=== PATIENT | female | born 1980 | race Caucasian/White ===

== ENCOUNTER → 2019-06-09 13:42 | Outpatient (CLI) | payer OTHER, SELFPAY ==
--- NOTE | 2019-06-09 | DI.RAD.S_ITS ---
PROCEDURE: XR KNEE RT 1TO2V INDICATIONS: PAIN IN RIGHT KNEE TECHNIQUE: 2 views of the knee were acquired. COMPARISON: None. FINDINGS: Bones: No fractures or dislocations. No suspicious bony lesions. Soft tissues: No joint effusion. No suspicious soft tissue calcifications. IMPRESSION: Normal for age, source of current knee pain symptoms is not seen. Dictated by: Robel Iraheta M.D. on 06/09/2019 at 14:49 Approved by: Robel Iraheta M.D. on 06/09/2019 at 14:50
--- NOTE | 2019-06-09 | DI.RAD.S_ITS ---
PROCEDURE: XR CERVICAL SPINE 2V OR 3V INDICATIONS: CERVICALGA TECHNIQUE: 3 view(s) of the cervical spine were acquired. COMPARISON: None. FINDINGS: Bones: No fractures or dislocations to the T1 level. The lateral masses of C1 appear intact on the odontoid view. No suspicious bony lesions. Note is made of a moderately severe degree of degenerative disc disease at C5-6. Soft tissues: No prevertebral soft tissue swelling. IMPRESSION: Moderately severe C5-6 degenerative disc disease without subluxation or evidence of prior trauma. Dictated by: Robel Iraheta M.D. on 06/09/2019 at 15:44 Approved by: Robel Iraheta M.D. on 06/09/2019 at 15:45
--- NOTE | 2019-06-09 | DI.RAD.S_ITS ---
PROCEDURE: XR KNEE LT 1TO2V INDICATIONS: PAIN IN LEFT KNEE TECHNIQUE: 2 views of the knee were acquired. COMPARISON: None. FINDINGS: Bones: No fractures or dislocations. No suspicious bony lesions. Soft tissues: No joint effusion. No suspicious soft tissue calcifications. IMPRESSION: Normal for age, source of current knee pain symptoms is not seen. Dictated by: Robel Iraheta M.D. on 06/09/2019 at 15:44 Approved by: Robel Iraheta M.D. on 06/09/2019 at 15:44
== END ==
PROVIDERS: PCP Family Medicine Geriatric Medicine; Visit Provider Family Medicine Geriatric Medicine
DX: M50.30 Other cervical disc degeneration, unspecified cervical region (principal); M25.561 Pain in right knee; M25.562 Pain in left knee
CPT/HCPCS: 72040; 73560

== ENCOUNTER → 2019-09-27 12:13 | Outpatient (CLI) | payer OTHER, SELFPAY ==
--- NOTE | 2019-09-27 | DI.MG.S_ITS ---
BILATERAL DIGITAL SCREENING MAMMOGRAM 3D/2D WITH CAD: 09/27/2019 CLINICAL: Baseline exam. Routine screening. No prior exams were available for comparison. The tissue of both breasts is extremely dense, which lowers the sensitivity of mammography. Current study was also evaluated with a Computer Aided Detection (CAD) system. No significant masses, calcifications, or other findings are seen in either breast. IMPRESSION: NEGATIVE There is no mammographic evidence of malignancy. A 1 year screening mammogram is recommended. This exam was interpreted at Station ID: [id number]. NOTE: For mammograms, a report in lay terms will be sent to the patient. Approximately 15% of breast malignancies will not be visualized mammographically. In the management of a palpable breast mass, a negative mammogram must not discourage biopsy of a clinically suspicious lesion. Electronically Signed By: Alisa dubois/eufemia:09/27/2019 17:05:00 letter sent: Normal Exam ACR BI-RADS Category 1: Negative [id number]
== END ==
PROVIDERS: PCP Family Medicine Geriatric Medicine; Referring Provider Family Medicine Geriatric Medicine; Visit Provider Family Medicine Geriatric Medicine
DX: Z12.31 Encounter for screening mammogram for malignant neoplasm of breast (principal)
CPT/HCPCS: 77063; 77067

== ENCOUNTER → 2024-04-02 12:42 | Outpatient (CLI) | payer OTHER, MEDICAID, SELFPAY ==
--- NOTE | 2024-04-02 12:45 | DI.US.S_ITS ---
PROCEDURE: US PELVIC COMPLETE INDICATIONS: DUB TECHNIQUE: Real-time scanning was performed of the pelvic organs, with image documentation. Additional endovaginal scanning was necessary due to incomplete visualization of the adnexal and endometrial structures by transabdominal scanning. COMPARISON: None. FINDINGS: Uterus: Uterus is anteverted and normal in size at 7.9 x 4.1 x 5.6 cm. The myometrium is heterogeneous due to the presence of uterine fibroids. A midline anterior intramural/subserosal fibroid is seen measuring 0.8 x 0.3 x 0.7 cm. The endometrium measures 3.2 mm combined thickness. Ovaries: The right ovary measures 3.0 x 1.0 x 1.0 cm, with a calculated ovarian volume of 1.6 cc. The left ovary measures 3.4 x 4.8 x 3.4 cm, with a calculated ovarian volume of 29.1 cc. A 4.2 x 2.8 x 3.1 cm anechoic cyst is seen in the left ovary. The ovaries otherwise have a normal sonographic appearance. Less than 12 follicles can be seen in each ovary. No adnexal masses are seen. Other: No pathologic free abdominal or pelvic fluid. IMPRESSION: 1. Subcentimeter intramural uterine fibroid. 2. Left ovarian simple cyst measures up to 4.2 cm. Approved by: Ventura Peck M.D. on 04/02/2024 at 14:22
== END ==
PROVIDERS: PCP Student in an Organized Health Care Education/Training Program; Referring Provider Student in an Organized Health Care Education/Training Program; Visit Provider Student in an Organized Health Care Education/Training Program
DX: N92.6 Irregular menstruation, unspecified (principal); D25.1 Intramural leiomyoma of uterus; N83.292 Other ovarian cyst, left side
CPT/HCPCS: 76830; 76856

== ENCOUNTER → 2024-10-27 12:47 | Outpatient (CLI) | payer OTHER, SELFPAY ==
--- NOTE | 2024-10-27 12:49 | DI.MG.S_ITS ---
MM diagnostic mammo BI: 10/27/2024. BI-RADS: 1 CLINICAL: 43-year old female for bilateral diagnostic mammogram and left diagnostic breast ultrasound. Tyrer-Cuzick lifetime risk of 8.5%. No personal or first-degree family history of breast cancer. The patient reports a palpable abnormality (3 months) and pain (9 months) in the left breast. The pain is intermittent, cyclical, diffuse and worsens with increased caffeine intake. The palpable abnormality was felt by the patient's partner, but the patient cannot locate the lump herself on today's exam. PRIOR EXAMS 09/27/2019. MAMMOGRAPHY TECHNIQUE: 2D and 3D (tomosynthesis) digital mammographic views obtained, with additional images as needed for full coverage. Current study was also evaluated with a Computer Aided Detection (CAD) system. DENSITY C. The breasts are heterogeneously dense, which may obscure small masses. MAMMOGRAPHY FINDINGS Right: No suspicious mass, asymmetry, microcalcification, or other abnormality seen. Left: There is no suspicious mammographic finding to account for concern by the patient of pain/tenderness. No suspicious mass, asymmetry, microcalcification, or other abnormality seen. There is also no mammographic correlate for a reported lump in the left breast (patient is unable to locate or palpate the lump herself). IMPRESSION: * No evidence of malignancy. RECOMMENDATIONS Left * Diffuse, non-focal symptoms, such as pain or fullness are typically benign. Clinical follow-up is recommended, and further management of these symptoms should be based on the results of clinical evaluation. If diffuse symptoms persist or become more focal in nature, further clinical evaluation should be considered. * Clinical follow-up is also recommended for the reported palpable abnormality, and further management should be based on the results of clinical evaluation. If palpable abnormality persists or progresses, further clinical evaluation should be considered. Bilateral * Annual screening mammography. COMMENTS: Findings and recommendations were conveyed to the patient during today's evaluation. OVERALL ASSESSMENT CATEGORY BI-RADS-1: Negative. The [employer] recommends annual screening mammography beginning at age 40 for women with average risk of breast cancer. ELECTRONICALLY SIGNED: Greta Kelly M.D. on 10/27/2024 at 02:55:01 PM PT Interpreting Station ID: [id number]
== END ==
LOC: MAMMO 12:48
PROVIDERS: PCP Student in an Organized Health Care Education/Training Program; Referring Provider Student in an Organized Health Care Education/Training Program; Visit Provider Student in an Organized Health Care Education/Training Program
DX: N64.4 Mastodynia (principal); N63.0 Unspecified lump in unspecified breast; R92.333 Mammographic heterogeneous density, bilateral breasts
CPT/HCPCS: 77066; G0279